=== PATIENT | female | born 1970 | race Two or more races ===

== ENCOUNTER 2025-06-18 13:56 | Inpatient (IN) | payer OTHER ==
[~2025-06-18] VITALS: Ht 157.5 cm; Wt 59.0 kg
[2025-06-18 14:15] VITALS: BP 140/90; O2SAT 96
[2025-06-18] MEDS ORDERED: MONTELUKAST SODI4 M1 PO (14:18)
[2025-06-18] MEDS ORDERED: NASAL MIST126 ML (14:18)
[2025-06-18] MEDS ORDERED: PROAIR RESPICL90 MCG IH (14:18)
[2025-06-18] MEDS ORDERED: BUDESONIDE 0.5 MG/2 ML AMPUL.NEB IH ONE ×2 (15:00→21:46)
[2025-06-18] MEDS ORDERED: ALBUTEROL SULFATE 3 ML/2.5 MG AMPUL.NEB IH SCH (15:00)
[2025-06-18] MEDS ORDERED: 0.9 % SODIUM CHLORIDE 1,000 ML IV SCH ×2 (15:00→20:45)
[2025-06-18] MEDS ORDERED: METHYLPREDNISOLONE SOD SUCC 125 MG VIAL IV ONE (15:00)
[2025-06-18] MEDS ORDERED: IPRATROPIUM BROMIDE 0.5 MG/2.5 ML AMPUL.NEB IH SCH ×2 (15:00→21:00)
[2025-06-18] MEDS ORDERED: MONTELUKAST SODIUM 10 MG TABLET PO ONE (15:00)
[2025-06-18] MEDS ORDERED: MAGNESIUM SULFATE IN WATER 50 ML IV ONE (15:00)
[2025-06-18] MEDS ORDERED: METHYLPREDNISOLONE SOD SUCC 125 MG VIAL ONE (15:15)
[2025-06-18 15:54] LABS: BASO % 0.6 % (0.1-1.2); EOS # 0.40 (0.04-0.54); EOS % 8.6 % (0.7-7.0); LYMPH # 1.28 (1.18-3.74); LYMPH % 27.5 % (19.3-53.1); MEAN PLATELET VOLUME 9.90 fl (9.4-12.4); MONO # 0.37 (0.24-0.82); MONO % 7.9 % (4.7-12.5); NEUT # 2.56 (1.56-6.13); NEUT % 55.0 % (34.0-71.1); RED CELL DISTRIBUTION WIDTH 14.3 % (11.6-14.4)
[2025-06-18] MEDS ORDERED: ALBUTEROL SULFATE 3 ML/2.5 MG AMPUL.NEB IH ONE (16:09)
[2025-06-18] MEDS ORDERED: IPRATROPIUM BROMIDE 0.5 MG/2.5 ML AMPUL.NEB IH ONE ×2 (16:09→21:46)
[2025-06-18 16:16] LABS: ERYTHROCYTE SEDIMENTATION RATE 37 mm/hr (0-30)
[2025-06-18 16:20] LABS: ALT/SGPT 50.0 U/L (12-78); AST/SGOT 63.0 U/L (15-37); BILIRUBIN TOTAL 0.39 mg/dL (0.3-1.2); BUN CREA RATIO 17.0 (7.0-25.0); CREATININE SERUM 0.84 mg/dL (0.55-1.02); GFR 69.88; GLOBULINA 5.0 G/DL (2.4-3.5); GLUCOSE FASTING 88.0 mg/dL (65-100); OSMOLALITY SERUM 287.0 MOSM/KG (275-295)
[2025-06-18 17:59] LABS: COVID-19 AG NEGATIVE (NEGATIVE)
[2025-06-18] MEDS ORDERED: CETIRIZINE HCL 5MG/5ML BLIST.PACK PO ONE (18:29)
[2025-06-18] MEDS ORDERED: MONTELUKAST SODIUM 10 MG TABLET PO SCH (20:41)
[2025-06-18] MEDS ORDERED: METHYLPREDNISOLONE SOD SUCC 40 MG VIAL IV SCH (20:41)
[2025-06-18] MEDS ORDERED: FAMOTIDINE/PF 20 MG in 0.9 % SODIUM CHLORIDE 8 ML IV PUSH SCH (20:41)
[2025-06-18] MEDS ORDERED: AZITHROMYCIN 500 MG in DEXTROSE 5 % IN WATER 250 ML IV SCH (20:41)
[2025-06-18] MEDS ORDERED: ACETAMINOPHEN 500 MG GEL..CAP PO PRN (20:45)
[2025-06-18] MEDS ORDERED: GUAIFEN/DEXTROMETHORPHAN/PE 10 ML BLIST.PACK PO SCH (21:00)
[2025-06-18] MEDS ORDERED: LEVALBUTEROL HCL 1.25 MG/3 ML SOLUTION IH SCH (21:00)
[2025-06-18] MEDS ORDERED: LEVALBUTEROL HCL 1.25 MG/3 ML SOLUTION IH ONE (21:46)
== END 2025-06-19 01:00 | disposition left against medical advice (07) | DRG 203 ==
LOC: ER 13:56 → SEC-K 22:02
PROVIDERS: General Practice; ADMIT Student in an Organized Health Care Education/Training Program; ATTEND Student in an Organized Health Care Education/Training Program
PROC: 3E0F7GC Introduction of Other Therapeutic Substance into Respiratory Tract, Via Natural or Artificial Opening (ICD-10-PCS; principal; 2025-06-18)
PROC: 4A033R1 Measurement of Arterial Saturation, Peripheral, Percutaneous Approach (ICD-10-PCS; 2025-06-18)
DX: J45.41 Moderate persistent asthma with (acute) exacerbation (principal); Z53.29 Procedure and treatment not carried out because of patient's decision for other reasons